=== PATIENT | male | born 1960 | race Caucasian/White ===

== ENCOUNTER 2019-03-22 07:49 | Day surgery (SDC) | payer OTHER ==
[~2019-03-22] VITALS: Ht 170.2 cm; Wt 65.6 kg
[~2019-03-22 07:49] MED LIST: BACITRACIN 50,000 UNIT ONE; BUPIVACAINE/PF-EPI 0.5% 1:200K ONE
[2019-03-22] MEDS ORDERED: LACTATED RINGERS 1,000 ML IV SCH (08:41)
[2019-03-22 08:44] VITALS: BP 167/101
[2019-03-22] MEDS ORDERED: LIDOCAINE-MPF 1%, 2ML INFIL ONE (09:00)
[2019-03-22] MEDS ORDERED: SILD100T PO (09:03)
[2019-03-22] MEDS ORDERED: AMLO-150 PO (09:03)
[2019-03-22] MEDS ORDERED: ROSU10TA2 PO (09:03)
[2019-03-22] MEDS ORDERED: VALS1TAB28 PO (09:03)
[2019-03-22 09:15] LABS: ALANINE AMINOTRANSFERASE 20 U/L (12-78); ALBUMIN 4.1 g/dL (3.4-5.0); ANION GAP 8 mmol/L (5-15); CALCIUM 9.5 mg/dL (8.5-10.1); CHLORIDE 104 mmol/L (98-107); CREATININE 0.84 mg/dL (0.7-1.3)
[2019-03-22 09:17] LABS: ALKALINE PHOSPHATASE 93 U/L (45-117); BILIRUBIN,TOTAL 0.3 mg/dL (0.2-1.0); TOTAL PROTEIN 8.6 g/dL (6.4-8.2)
[2019-03-22] MEDS ORDERED: FENTANYL PF 100 MCG/2ML IV PRN (09:30)
[2019-03-22] MEDS ORDERED: LABETALOL 5MG/ML, 20ML IV PRN (09:30)
[2019-03-22] MEDS ORDERED: DIPHENHYDRAMINE 50 MG/ML, 1ML IVPush PRN (09:30)
[2019-03-22] MEDS ORDERED: PROCHLORPERAZINE 5 MG/ML, 2ML IV PRN (09:30)
[2019-03-22] MEDS ORDERED: hydrALAzine 20 MG/ML, 1ML IV PRN (09:30)
[2019-03-22] MEDS ORDERED: HALOPERIDOL 5 MG/ML IV PRN (09:30)
[2019-03-22] MEDS ORDERED: PROMETHAZINE 25 MG/ML, 1ML IV PRN (09:30)
[2019-03-22] MEDS ORDERED: MEPERIDINE/PF 25MG/0.5ML IVPush PRN (09:30)
[2019-03-22] MEDS ORDERED: OXYcodone 5 MG/5 ML ORAL.SOL UDC PO PRN (09:30)
[2019-03-22] MEDS ORDERED: ACETAMINOPHEN 325 MG TABLET PO PRN (09:30)
[2019-03-22] MEDS ORDERED: HYDROmorphone 2 MG/ML, 1ML IVPush PRN (09:30)
[2019-03-22] MEDS ORDERED: METOPROLOL 1 MG/ML, 5ML IV PRN (09:30)
[2019-03-22] MEDS ORDERED: FENTANYL PF 100 MCG/2ML ONE ×2 (10:06→10:25)
[2019-03-22] MEDS ORDERED: ONDANSETRON 2MG/ML, 2ML ONE (10:12)
[2019-03-22] MEDS ORDERED: KETOROLAC 30 MG/1 ML ONE (10:12)
[2019-03-22] MEDS ORDERED: CEFAZOLIN 1,000 MG ONE (10:12)
[2019-03-22] MEDS ORDERED: SUCCINYLCHOLINE 20 MG/ML, 10ML ONE (10:12)
[2019-03-22] MEDS ORDERED: ROCURONIUM 10 MG/ML,10ML ONE (10:12)
[2019-03-22] MEDS ORDERED: PROPOFOL 10 MG/ML, 20ML ONE (10:12)
[2019-03-22] MEDS ORDERED: DEXAMETHASONE 4 MG/ML, 1ML ONE (10:12)
[2019-03-22] MEDS ORDERED: GLYCOPYRROLATE 0.2MG/1ML, 5ML ONE (10:12)
[2019-03-22] MEDS ORDERED: OXYcodone 5 MG/5 ML ORAL.SOL UDC ONE (11:03)
== END 2019-03-22 13:30 | disposition home or self-care (01) ==
LOC: OUT 07:49
PROVIDERS: ATTEND Surgery Vascular Surgery
DX: K40.90 Unilateral inguinal hernia, without obstruction or gangrene, not specified as recurrent (principal); I10 Essential (primary) hypertension; E78.5 Hyperlipidemia, unspecified; Z72.89 Other problems related to lifestyle; Z79.899 Other long term (current) drug therapy; Z87.891 Personal history of nicotine dependence; Z80.0 Family history of malignant neoplasm of digestive organs
CPT/HCPCS: 36415; 49505; 80053; C1781; J0330; J0690; J1100; J1885; J2405; J2704; J3010; J7120